=== PATIENT | male | born 1995 | race Caucasian/White ===

== ENCOUNTER → 2025-03-10 15:01 | Outpatient (CLI) | payer OTHER, SELFPAY ==
--- NOTE | 2025-03-10 15:53 | DI.MRI.S_ITS ---
PROCEDURE: MR HIP LT WO/W CON INDICATIONS: Left femoral intertrochanteric lesion. TECHNIQUE: Noncontrast coronal T1 spin echo and STIR through the bony pelvis. Coronal and axial T2 fast spin echo with fat saturation, axial T1 spin echo with fat saturation, sagittal T1 spin echo, and oblique axial T2 fast spin echo with fat saturation through the hip. Post-contrast axial, coronal, and sagittal spin echo with fat saturation through the hip. COMPARISON: Outside Film, MR, MR HIP LEFT WITH/WITHOUT CONTRAST, 12/05/2024, 8:44. [facility], CR, XR PELVIS WITH LATERAL HIP LEFT, 01/12/2025, 7:29. FINDINGS: OSSEOUS STRUCTURES: Redemonstrated T1 isointense to skeletal muscle, T2 heterogeneously predominantly hyperintense, heterogeneously enhancing lesion in the anterior juxtacortical intramedullary space of the inferior left trochanteric femur. The lesion measures 2.1 x 0.9 x 1.5 cm (coronal T2 series 6, image 11; axial postcontrast series 9, image 28), previously 2.1 x 1.1 x 1.6 cm when measured similarly on 12/05/2024. No juxta lesional bone marrow edema, cortical breakthrough or periosteal reaction. There is slight increased heterogeneity in postcontrast enhancement, which may be artifactual secondary to contrast bolus timing. No visualized satellite lesion. Left hip joint: Intact articular cartilage without high-grade full-thickness articular cartilage defect. Intact labrum. No paralabral cyst. No joint effusion. Intact ligamentum teres. MUSCLES / TENDONS: Intact left iliopsoas mild left gluteal cuff, left hamstring tendon origin, rectus femoris direct and indirect heads, and the abductor musculature. NEUROVASCULAR: Normal appearance of the femoral neurovascular bundle and the sciatic nerve. SOFT TISSUE: No inguinal lymphadenopathy. Normal subcutaneous fat. Additional findings: On large field of view the pelvic viscera is unremarkable on nondedicated assessment. Normal appearance of the bilateral sacroiliac joints, pubic symphysis, and right hip joint on large field of view. IMPRESSION: Stable size of the 2.1 cm juxtacortical lesion in the left inferior intertrochanteric femur. 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 Dictated by: Homero Kohli M.D. on 03/10/2025 at 16:02 Approved by: Homero Kohli M.D. on 03/10/2025 at 16:16
== END ==
LOC: MRI 15:02
PROVIDERS: Referring Provider Physician Assistant Medical; Visit Provider Physician Assistant Medical
DX: D16.22 Benign neoplasm of long bones of left lower limb (principal)
CPT/HCPCS: 73723; A9579